=== PATIENT | female | born 1970 | race Caucasian/White ===

== ENCOUNTER 2018-01-02 09:45 | Emergency (ER) | payer OTHER ==
[~2018-01-02] VITALS: Ht 167.6 cm; Wt 74.8 kg
[2018-01-02 09:45] VITALS: BP 130/83
--- NOTE | 2018-01-02 10:18 | NUR ---
PATIENT SEEN BY DR. KATHLEEN, STATING SHE WANTS HER "BACK FIXED." STATING SHE DOES NOT WANT PAIN MEDICINE, BUT FOR HER BACK TO BE TAKEN CARE OF. DR. KATHLEEN STATED WE CANNOT DO THAT IN THE ER AND SHE NEED TO SEE HER SPECIALIST. PATIENT AND GOT UP AND LEFT ONCE FINISHED TALKING TO DR. KATHLEEN.
== END 2018-01-02 10:20 | disposition left against medical advice (07) ==
LOC: ER 09:46
DX: M54.5 Low back pain (principal); F17.200 Nicotine dependence, unspecified, uncomplicated
CPT/HCPCS: Z7502; Z7610